=== PATIENT | male | born 1980 ===

== ENCOUNTER 2018-08-14 03:28 | Emergency (ER) | payer SELFPAY ==
[2018-08-14 03:37] VITALS: RESP 18
--- NOTE | 2018-08-14 04:07 | ED PDOC ---
HPI: Psych/Substance Abuse Chief Complaint (Provider): suicidal ideation History Per: Patient (37 y/o male h/o depression here with suicidal ideation. Patient denies any plan. States he has additional h/o schizophrenia and has been off Abilify. ) <Josee Delgado - Last Filed: 08/14/18 06:13> <Be Denise - Last Filed: 08/14/18 06:42> Time Seen by Provider: 08/14/18 03:45 Chief Complaint (Nursing): Alcohol Ingestion Past Medical History Reviewed: Historical Data, Nursing Documentation, Vital Signs Vital Signs: Last Vital Signs Temp 97.8 F 08/14/18 03:30 Pulse 82 08/14/18 03:30 Resp 18 08/14/18 03:30 BP 120/83 08/14/18 03:30 Pulse Ox 97 08/14/18 03:30 - Medical History PMH: Depression, Hypercholesterolemia - Family History Family History: States: No Known Family Hx <Josee Delgado - Last Filed: 08/14/18 06:13> Vital Signs: Last Vital Signs Temp 97.8 F 08/14/18 03:30 Pulse 82 08/14/18 03:30 Resp 18 08/14/18 03:30 BP 120/83 08/14/18 03:30 Pulse Ox 97 08/14/18 06:13 <Be Denise - Last Filed: 08/14/18 06:42> - Allergies Allergies/Adverse Reactions: Allergies Allergy/AdvReac Type Severity Reaction Status Date / Time No Known Allergies Allergy Verified 08/14/18 03:30 Review of Systems ROS Statement: Except As Marked, All Systems Reviewed And Found Negative <Josee Delgado - Last Filed: 08/14/18 06:13> Physical Exam - Reviewed Nursing Documentation Reviewed: Yes Vital Signs Reviewed: Yes - Physical Exam Appears: Positive for: Well, Non-toxic, No Acute Distress Head Exam: Positive for: ATRAUMATIC, NORMAL INSPECTION, NORMOCEPHALIC Skin: Positive for: Normal Color, Warm, DRY Eye Exam: Positive for: EOMI, Normal appearance, PERRL ENT: Positive for: Normal ENT Inspection Neck: Positive for: Normal, Painless ROM Cardiovascular/Chest: Positive for: Regular Rate, Rhythm Respiratory: Positive for: CNT, Normal Breath Sounds Gastrointestinal/Abdominal: Positive for: Normal Exam, Soft Back: Positive for: Normal Inspection Extremity: Positive for: Normal ROM Neurologic/Psych: Positive for: Alert, Oriented <Josee Delgado - Last Filed: 08/14/18 06:13> - Laboratory Results Result Diagrams: 08/14/18 04:10 08/14/18 04:10 - ECG O2 Sat by Pulse Oximetry: 97 <Josee Delgado - Last Filed: 08/14/18 06:13> - Laboratory Results Result Diagrams: 08/14/18 04:10 08/14/18 04:10 <Be Denise - Last Filed: 08/14/18 06:42> Medical Decision Making Medical Decision MakinAM Patient is awake and alert, steady gait Cleared by crisis with dx: alcohol induced depressive disorder by Dr. Molina STable for discharge <Be Denise - Last Filed: 08/14/18 06:42> Disposition - Patient ED Disposition Is Patient to be Admitted: Transfer of Care - Disposition Disposition: Transfer of Care Disposition Time: 06:13 Patient Signed Over To: Be Denise Handoff Comments: crisis eval <Josee Delgado - Last Filed: 08/14/18 06:13> - Patient ED Disposition Is Patient to be Admitted: No - Disposition Disposition: Routine/Home <Be Denise - Last Filed: 08/14/18 06:42> - Clinical Impression Clinical Impression: Alcohol ingestion - Disposition Referrals: Alcoholics Anonymous [Outside] Condition: FAIR Instructions: Depression, Suicide Prevention, Alcohol Abuse and Alcoholism (DC)
[2018-08-14 04:26] LABS: BASO % 0.7 % (0.0-2.0); EOS # 0.1 K/uL (0.0-0.7); HEMOGLOBIN 14.6 g/dL (12.0-18.0); LYMPH # 2.5 K/uL (1.0-4.3); LYMPH % 36.3 % (20.0-40.0); MEAN CELL VOLUME 89.2 fl (80.0-94.0); MEAN CORPUSCULAR HEMOGLOBIN 30.6 pg (27.0-31.0); MEAN CORPUSCULAR HGB CONC 34.3 g/dL (33.0-37.0); MEAN PLATELET VOLUME 9.3 fl (7.2-11.7); MONO # 0.6 K/uL (0.0-0.8); MONO % 8.7 % (0.0-10.0); NEUT # 3.6 K/uL (1.8-7.0); NEUT % 52.3 % (50.0-75.0); RBC 4.79 Mil/uL (4.40-5.90); RED CELL DISTRIBUTION WIDTH 13.4 % (11.5-14.5); WHITE BLOOD COUNT 6.9 K/uL (4.8-10.8)
[2018-08-14 04:47] LABS: ALB/GLOB RATIO 1.4 (1.0-2.1); ALBUMIN 4.5 g/dL (3.5-5.0); ALT/SGPT 29 U/L (21-72); AST/SGOT 28 U/L (17-59); BLOOD UREA NITROGEN 13 mg/dl (9-20); CALCIUM 8.9 mg/dL (8.4-10.2); GFR NON-AFRICAN AMERICAN > 60
[2018-08-14 07:09] LABS: SQUAMOUS EPITHIAL 1 /hpf (0-5); URINE BILIRUBIN NEGATIVE (NEGATIVE); URINE BLOOD NEGATIVE (NEGATIVE); URINE CLARITY CLEAR (Clear); URINE COLOR STRAW (YELLOW); URINE GLUCOSE (UA) 50 mg/dL (NEGATIVE); URINE LEUKOCYTE ESTERASE NEG Leu/uL (Negative); URINE PROTEIN NEGATIVE (NEGATIVE); URINE UROBILINOGEN 0.2-1.0 mg/dL (0.2-1.0)
[2018-08-14 07:10] VITALS: BP 123/78; PULSE 86; TEMP 97.7; O2SAT 96
[2018-08-14 07:15] LABS: BARBITURATES, UR NEGATIVE (NEGATIVE); BENZODIAZEPINES, UR NEGATIVE (NEGATIVE); OPIATES, UR NEGATIVE (NEGATIVE); PHENCYCLIDINE, UR NEGATIVE (NEGATIVE)
== END 2018-08-14 07:11 | disposition home or self-care (01) ==
LOC: H.ER 03:28
DX: F32.9 Major depressive disorder, single episode, unspecified (principal); Z86.59 Personal history of other mental and behavioral disorders; F10.10 Alcohol abuse, uncomplicated
CPT/HCPCS: 80053; 81003; 82948; 85025; 99282; G0480

== ENCOUNTER 2018-10-24 14:10 | Inpatient (IN) | payer MEDICAID ==
--- NOTE | 2018-10-24 15:39 | ED PDOC ---
HPI: Psych/Substance Abuse Time Seen by Provider: 10/24/18 15:08 Chief Complaint (Nursing): Psychiatric Evaluation Chief Complaint (Provider): psychiatric evaluation History Per: Patient History/Exam Limitations: no limitations Onset/Duration Of Symptoms: Days (several weeks) Current Symptoms Are (Timing): Still Present Associated Symptoms: Depression, Suicidal Thoughts. denies: Suicidal Plan Additional Complaint(s): Alessandro Kumar is a 38 year old male, with a past medical history of diabetes, hypercholesterolemia, depression, anxiety and schizophrenia, who was sent by PMD and brought to the emergency department by EMS for psychiatric evaluation after patient expressed suicidal ideations and feeling depressed. Patient also reports hearing voices telling him negative thoughts. Patient is noncompliant with his psychiatric medications stating he hasn't taken them in years. He admits to drinking alcohol today. He denies any plan, homicidal ideation, visual hallucinations or psychiatric complaints. PMD: Alice Linder at [facility]. Past Medical History Reviewed: Historical Data, Nursing Documentation, Vital Signs Vital Signs: Last Vital Signs Temp 99.2 F 10/24/18 14:41 Pulse 121 H 10/24/18 14:41 Resp 18 10/24/18 14:41 BP 125/81 10/24/18 14:41 Pulse Ox 99 10/24/18 14:41 - Medical History PMH: Anxiety, Depression, Diabetes (on Metformin), Hypercholesterolemia, Schizophrenia - Surgical History Surgical History: No Surg Hx - Family History Family History: States: Unknown Family Hx - Social History Current smoker - smoking cessation education provided: Yes (x3 cigarettes/day) Alcohol: > 2 Drinks/Day Drugs: Denies - Home Medications Home Medications: Ambulatory Orders Medication Instructions Recorded RX: Unobtainable 10/24/18 - Allergies Allergies/Adverse Reactions: Allergies Allergy/AdvReac Type Severity Reaction Status Date / Time No Known Allergies Allergy Verified 10/24/18 14:41 Review of Systems ROS Statement: Except As Marked, All Systems Reviewed And Found Negative Psych: Positive for: Depression, Suicidal ideation, Other ((+)auditory hallucinations. No suicidal plan, homicidal ideation or visual hallucinations.) Physical Exam - Reviewed Nursing Documentation Reviewed: Yes Vital Signs Reviewed: Yes - Physical Exam Comments: GENERAL APPEARANCE: Patient is awake, alert, oriented x 3, in no acute distress. SKIN: Warm, dry; (-) cyanosis ENMT: Mucous membranes moist. Airway patent: (-) stridor. NECK: Supple, FROM HEART AND CARDIOVASCULAR: (-) irregularity CHEST AND RESPIRATORY: (-) rales, (-) rhonchi, (-) wheezes; breath sounds equal. Respirations even and nonlabored. ABDOMEN: Soft, (-) distention, (-) tenderness, (-) guarding. NEURO AND PSYCH: Mental status as above. Affect: flat. (-) facial asymmetry. Gait: steady. Speech: clear. (-) facial asymmetry - Laboratory Results Result Diagrams: 10/24/18 18:32 10/24/18 19:15 - ECG O2 Sat by Pulse Oximetry: 99 (RA) Pulse Ox Interpretation: Normal Medical Decision Making Medical Decision Making: Time: 15:05 Initial Impression: psychiatric evaluation Initial Plan: --Alcohol serum --Drug screen, urine --Crisis evaluation --1:1 Observation --Reevaluation 1700 Utox: negative Serum alcohol: 183 Patient sleeping comfortably on re-evaluation. No distress noted. 1720 Crisis at bedside. 1800 Per crisis evaluation, patient to be admitted for Depression with Psychosis and Alcohol Abuse per Dr Molina. CBC, CMP, U/A, CXR, EKG ordered for medical clearance. 1900 EKG: ST @ 110bpm (-) ST elevation, QTc 457 1945 CXR reviewed, radiology report follows Date of service: 10/24/2018 HISTORY: psych admit COMPARISON: No prior. FINDINGS: LUNGS: No active pulmonary disease. PLEURA: No significant pleural effusion identified, no pneumothorax apparent. CARDIOVASCULAR: No atherosclerotic calcification present Normal. OSSEOUS STRUCTURES: No significant abnormalities. VISUALIZED UPPER ABDOMEN: Normal. OTHER FINDINGS: None. IMPRESSION: No active disease. 2019 Labs reviewed, patient is medically stable for psychiatric admission. Arrangements made for admission. ----- Scribe Attestation: Documented by Tavares Gonzales, acting as a scribe for Sydnee Lay PA-C. Provider Scribe Attestation: All medical record entries made by the Scribe were at my direction and person ally dictated by me. I have reviewed the chart and agree that the record accurately reflects my personal performance of the history, physical exam, medical decision making, and the department course for this patient. I have also personally directed, reviewed, and agree with the discharge instructions and disposition. Disposition - Clinical Impression Clinical Impression: Depression, Alcohol abuse - Patient ED Disposition Is Patient to be Admitted: Yes Counseled Patient/Family Regarding: Studies Performed, Diagnosis - Disposition Disposition Time: 18:00 Condition: FAIR - Pt Status Changed To: Hospital Disposition Of: Inpatient (psych) - Admit Certification Admit to Inpatient:: After my assessment, the patient will require hospitalization for at least two midnights. This is because of the severity of symptoms shown, intensity of services needed, and/or the medical risk in this patient being treated as an outpatient. - POA Present On Arrival: Poor Glycemic Control Results - Diagnostic Imaging Results Radiology Results Chest X-Ray 10/24/18 18:01 IMPRESSION: No active disease. - Lab Results Lab Results: 10/24/18 10/24/18 10/24/18 18:32 16:15 16:15 WBC 5.2 RBC 4.73 Hgb 14.6 Hct 43.2 MCV 91.2 D MCH 30.8 MCHC 33.8 RDW 14.3 Plt Count 210 MPV 9.5 Neut % (Auto) 57.9 Lymph % (Auto) 33.1 [place] % (Auto) 5.4 Eos % (Auto) 3.0 Baso % (Auto) 0.6 Neut # (Auto) 3.0 Lymph # (Auto) 1.7 [place] # (Auto) 0.3 Eos # (Auto) 0.2 Baso # (Auto) 0.0 Urine Opiates Screen Negative Urine Methadone Screen Negative Ur Barbiturates Screen Negative Ur Phencyclidine Scrn Negative Ur Amphetamines Screen Negative U Benzodiazepines Scrn Negative U Oth Cocaine Metabols Negative U Cannabinoids Screen Negative Alcohol, Quantitative 183 H
[2018-10-24 16:55] LABS: BENZODIAZEPINES, UR NEGATIVE (NEGATIVE)
[2018-10-24 17:00] LABS: BARBITURATES, UR NEGATIVE (NEGATIVE); OPIATES, UR NEGATIVE (NEGATIVE); PHENCYCLIDINE, UR NEGATIVE (NEGATIVE)
[2018-10-24 18:38] LABS: BASO % 0.6 % (0.0-2.0); EOS # 0.2 K/uL (0.0-0.7); HEMOGLOBIN 14.6 g/dL (12.0-18.0); LYMPH # 1.7 K/uL (1.0-4.3); LYMPH % 33.1 % (20.0-40.0); MEAN CELL VOLUME 91.2 fl (80.0-94.0); MEAN CORPUSCULAR HEMOGLOBIN 30.8 pg (27.0-31.0); MEAN CORPUSCULAR HGB CONC 33.8 g/dL (33.0-37.0); MEAN PLATELET VOLUME 9.5 fl (7.2-11.7); MONO # 0.3 K/uL (0.0-0.8); MONO % 5.4 % (0.0-10.0); NEUT % 57.9 % (50.0-75.0); NRBC % 0.1 % (0.0-0.0); RBC 4.73 Mil/uL (4.40-5.90); RED CELL DISTRIBUTION WIDTH 14.3 % (11.5-14.5); WHITE BLOOD COUNT 5.2 K/uL (4.8-10.8)
--- NOTE | 2018-10-24 18:51 | RAD ---
Date of service: 10/24/2018 HISTORY: psych admit COMPARISON: No prior. FINDINGS: LUNGS: No active pulmonary disease. PLEURA: No significant pleural effusion identified, no pneumothorax apparent. CARDIOVASCULAR: No atherosclerotic calcification present Normal. OSSEOUS STRUCTURES: No significant abnormalities. VISUALIZED UPPER ABDOMEN: Normal. OTHER FINDINGS: None. IMPRESSION: No active disease.
[2018-10-24 19:19] LABS: SQUAMOUS EPITHIAL < 1 /hpf (0-5); URINE BILIRUBIN NEGATIVE (NEGATIVE); URINE BLOOD NEGATIVE (NEGATIVE); URINE CLARITY CLEAR (Clear); URINE COLOR STRAW (YELLOW); URINE GLUCOSE (UA) >=500 mg/dL (NEGATIVE); URINE LEUKOCYTE ESTERASE NEG Leu/uL (Negative); URINE PROTEIN NEGATIVE (NEGATIVE); URINE UROBILINOGEN 0.2-1.0 mg/dL (0.2-1.0)
[2018-10-24 20:07] LABS: ALB/GLOB RATIO 1.4 (1.0-2.1); ALBUMIN 4.4 g/dL (3.5-5.0); ALT/SGPT 21 U/L (21-72); AST/SGOT 37 U/L (17-59); BLOOD UREA NITROGEN 10 mg/dl (9-20); CALCIUM 9.1 mg/dL (8.4-10.2); GFR NON-AFRICAN AMERICAN > 60
[2018-10-24] MEDS ORDERED: Magnesium Hydroxide Susp 30 ml UD PO PRN (22:24)
[2018-10-24] MEDS ORDERED: DiphenhydrAMINE 50 mg/ml Inj IM PRN (22:24)
[2018-10-24] MEDS ORDERED: Alum-Mag Hydrox-Simethicone Susp (30 mL) PO PRN (22:24)
--- NOTE | 2018-10-24 22:37 | PCM.BM ---
<Yuni Hagan P - Last Filed: 10/24/18 22:36> Treatment Plan Problems - Problems identified on initial assessmt Auditory Hallucinations Date Initiated: 10/24/18 Time Initiated: 22:36 Assessment reference: NA Status: Active Impaired Communication Date Initiated: 10/24/18 Time Initiated: 22:36 Assessment reference: NA Status: Active Altered Sleep Patterns Date Initiated: 10/24/18 (n) Assessment reference: NA Status: Active Treatment assets and liabiliti Patient Assests: cooperative, ADL independent, negotiates basic needs, cognitively intact, good interpersonal skills Patient Liabilities: financial problems, poor support system, substance abuse, medical problems, language/speech - Milieu Protocol Maintain good personal hygiene: daily Encourage regular showers, daily Remind patient to perform daily oral care, daily Assist patient to perform ADL's Conduct patient checks and document Observation sheet: Q15 minutes Maintain personal safety: every shift Educate patient to report safety concerns to staff, every shift Monitor environment for contraband/sharps Medication safety: Monitor for expected outcome, potential side effects: every shift, Assess barriers to learning: every shift, Assess readiness for medication education: every shift <Jimi Brasher J - Last Filed: 10/28/18 11:13> Treatment Plan Problems - Problems identified on initial assessmt Auditory Hallucinations Date Initiated: 10/24/18 Time Initiated: 22:36 Assessment reference: NA Status: Active Impaired Communication Date Initiated: 10/24/18 Time Initiated: 22:36 Assessment reference: NA Status: Active Altered Sleep Patterns Date Initiated: 10/24/18 (n) Assessment reference: NA Status: Active Knowledge deficit Alcohol Date Initiated: 10/27/18 Time Initiated: 14:36 Assessment reference: NA Status: Active Denial Date Initiated: 10/27/18 Time Initiated: 14:37 Assessment reference: NA Status: Active Family Contact Family involvement: Famliy/SO not involved Family contact: Patient declines to allow family contact at present Family contact name: Pt refused. - Goals for Treatment Patient goals for treatment: Pt offered no goals for treatment at this time, and appears to lack insight into his mental illness and substance abuse. Discharge/Continuing Care - Education Needs Education Needs: Patient Medication, Patient Diagnosis/Disease Process, Patient Coping Skills, Patient Aftercare Safety Plan - Discharge Discharge Criteria: Tolerates medication w/o severe side effects, Free of Suicidal thoughts, Free of agitation, Normal sleep pattern, Reduction of target symptoms Discharge to:: Home, With Family - Treatment Team Participation Patient/Family/SO Statement: 10/28/18 11:15 Pt was seen in treatment team on 10/27/18> Pt reported that he and his depression are doing "good." Dr. Molina explained that she will raise pt's Zoloft from 25mg to 50mg. Pt expressed trouble sleeping and denied auditory hallucinations at this time. Pt asked this caption writer to call his job and informed them of his hispitalization. Pt denied SI/HI. Discussed with Family/SO: Yes Was Patient/Family/SO present at Treatment Team Meeting: No <Monse Molina - Last Filed: 10/30/18 10:09> - Diagnosis (1) Alcohol abuse Status: Acute Interventions: 10/30/18 10:08 motivational, therapy (2) Depression Status: Acute Interventions: 10/30/18 10:09 pharmacotherapy, psychotherapy
[2018-10-25 00:16] VITALS: O2SAT 99
--- NOTE | 2018-10-25 09:03 | CARD ---
APPROVED REPORT Date of service: 10/24/2018 EKG Measurement Heart [id number] <Conclusion> Sinus tachycardia Otherwise normal ECG
--- NOTE | 2018-10-25 11:13 | CP.PCM.CON ---
<Yessi Juárez - Last Filed: 10/25/18 11:46> History of Present Illness - History of Present Illness History of Present Illness: 38 yo ,m, PMHx/o Anxiety, Depression, schizophrenia, DM, HLD who was sent by PMD by EMS due to suicidal ideation and feeling depressed. Pt reports he has not been taking his medications for diabetes and schizophrenia for the last 2 months. Reports auditory hallucination, women voices ordering to end with his life, but has not a plan. PT reports he has been drinking for the last 2 weeks more than usual. Denies chest pain, SOB, N,v,d,abd pain, headache, dizziness, tremor. PMD: Alice Linder at [facility]. Allergies: NKDA Meds: Metformin 1000 mg BID PSHx: ETOH social, but 1/2 bottle vodka for the last 2 weeks. REct drugs no, smoker 3 cig/daily Review of Systems - Review of Systems All systems: reviewed and no additional remarkable complaints except - Psychiatric Psychiatric: Hallucinations, Suicidal Ideation Past Patient History - Past Social History Alcohol: > 2 Drinks/Day Drugs: Denies - CARDIAC Hx Hypercholesterolemia: Yes - PULMONARY Hx Tuberculosis: No - NEUROLOGICAL Hx Seizures: No - HEENT Hx HEENT Problems: No - RENAL Hx Chronic Kidney Disease: No - ENDOCRINE/METABOLIC Hx Endocrine Disorders: Yes Hx Diabetes Mellitus Type 2: Yes - HEMATOLOGICAL/ONCOLOGICAL Hx Human Immunodeficiency Virus (HIV): No - INTEGUMENTARY Hx Dermatological Problems: No - MUSCULOSKELETAL/RHEUMATOLOGICAL Hx Musculoskeletal Disorders: No - GASTROINTESTINAL Hx Gastrointestinal Disorders: No - GENITOURINARY/GYNECOLOGICAL Hx Sexually Transmitted Disorders: No - PSYCHIATRIC Hx Anxiety: Yes Hx Depression: Yes Hx Schizophrenia: Yes - SURGICAL HISTORY Hx Surgeries: No - ANESTHESIA Hx Anesthesia: No Meds Allergies/Adverse Reactions: Allergies Allergy/AdvReac Type Severity Reaction Status Date / Time No Known Allergies Allergy Verified 10/24/18 14:41 - Medications Medications: Current Medications Acetaminophen (Tylenol 325mg Tab) 650 mg PO Q4 PRN PRN Reason: pain level 4-7 Al Hydrox/Mg Hydrox/Simethicone (Maalox Plus 30 Ml) 30 ml PO Q4 PRN PRN Reason: Dyspepsia Diphenhydramine HCl (Benadryl) 50 mg IM Q6 PRN PRN Reason: Extrapyramidal S/S Unable PO Diphenhydramine HCl (Benadryl) 50 mg PO Q6 PRN PRN Reason: Extrapyramidal Symptoms Diphenhydramine HCl (Benadryl) 50 mg PO HS PRN PRN Reason: Sleep Haloperidol (Haldol) 5 mg PO Q4 PRN PRN Reason: Agitation Haloperidol Lactate (Haldol) 5 mg IM Q4 PRN PRN Reason: Agitation, Unable to Take PO Lorazepam (Ativan) 2 mg IM Q8H PRN PRN Reason: Anxiety/Agitation,Unable PO Lorazepam (Ativan) 1 mg PO Q8 PRN PRN Reason: Anxiety/Agitation Magnesium Hydroxide (Milk Of Magnesia) 30 ml PO HS PRN PRN Reason: Constipation Metformin HCl (Glucophage) 1,000 mg PO BID AS[facility] Last Admin: 10/25/18 09:54 Dose: 1,000 mg Physical Exam - Constitutional Appears: Non-toxic - Eye Exam Eye Exam: Normal appearance - Respiratory Exam Respiratory Exam: Clear to Auscultation Bilateral. absent: Rales - Cardiovascular Exam Cardiovascular Exam: REGULAR RHYTHM, +S1, +S2 - GI/Abdominal Exam GI & Abdominal Exam: Normal Bowel Sounds, Soft - Psychiatric Exam Psychiatric exam: Flat Affect - Skin Skin Exam: Intact Results - Vital Signs Recent Vital Signs: Last Vital Signs Temp 97.9 F 10/25/18 09:20 Pulse 84 10/25/18 09:20 Resp 17 10/25/18 09:20 BP 140/86 10/25/18 09:20 Pulse Ox 99 10/25/18 00:18 - Labs Result Diagrams: 10/24/18 18:32 10/24/18 19:15 Labs: Laboratory Results - last 24 hr 10/24/18 10/24/18 10/24/18 16:15 16:15 18:32 WBC 5.2 RBC 4.73 Hgb 14.6 Hct 43.2 MCV 91.2 D MCH 30.8 MCHC 33.8 RDW 14.3 Plt Count 210 MPV 9.5 Neut % (Auto) 57.9 Lymph % (Auto) 33.1 [place] % (Auto) 5.4 Eos % (Auto) 3.0 Baso % (Auto) 0.6 Neut # (Auto) 3.0 Lymph # (Auto) 1.7 Stark # (Auto) 0.3 Eos # (Auto) 0.2 Baso # (Auto) 0.0 Sodium Potassium Chloride Carbon Dioxide Anion Gap BUN Creatinine Est GFR ( Amer) Est GFR (Non-Af Amer) POC Glucose (mg/dL) Random Glucose Calcium Total Bilirubin AST ALT Alkaline Phosphatase Total Protein Albumin Globulin Albumin/Globulin Ratio Triglycerides Cholesterol LDL Cholesterol Direct HDL Cholesterol Thyroxine (T4) TSH 3rd Generation Urine Color Urine Clarity Urine pH Ur Specific [place] Urine Protein Urine Glucose (UA) Urine Ketones Urine Blood Urine Nitrate Urine Bilirubin Urine Urobilinogen Ur Leukocyte Esterase Urine Microscopic WBC Ur Squamous Epith Cells Urine Opiates Screen Negative Urine Methadone Screen Negative Ur Barbiturates Screen Negative Ur Phencyclidine Scrn Negative Ur Amphetamines Screen Negative U Benzodiazepines Scrn Negative U Oth Cocaine Metabols Negative U Cannabinoids Screen Negative Alcohol, Quantitative 183 H 10/24/18 10/24/18 10/24/18 19:08 19:15 21:31 WBC RBC Hgb Hct MCV MCH MCHC RDW Plt Count MPV Neut % (Auto) Lymph % (Auto) [place] % (Auto) Eos % (Auto) Baso % (Auto) Neut # (Auto) Lymph # (Auto) [place] # (Auto) Eos # (Auto) Baso # (Auto) Sodium 142 Potassium 3.7 Chloride 103 Carbon Dioxide 21 L Anion Gap 22 H BUN 10 Creatinine 0.9 Est GFR ( Amer) > 60 Est GFR (Non-Af Amer) > 60 POC Glucose (mg/dL) 213 H Random Glucose 252 H Calcium 9.1 Total Bilirubin 0.2 AST 37 ALT 21 D Alkaline Phosphatase 85 Total Protein 7.5 Albumin 4.4 Globulin 3.1 Albumin/Globulin Ratio 1.4 Triglycerides Cholesterol LDL Cholesterol Direct HDL Cholesterol Thyroxine (T4) TSH 3rd Generation Urine Color Straw Urine Clarity Clear Urine pH 6.0 Ur Specific [place] 1.016 Urine Protein Negative Urine Glucose (UA) >=500 Urine Ketones Trace Urine Blood Negative Urine Nitrate Negative Urine Bilirubin Negative Urine Urobilinogen 0.2-1.0 Ur Leukocyte Esterase Neg Urine Microscopic WBC < 1 Ur Squamous Epith Cells < 1 Urine Opiates Screen Urine Methadone Screen Ur Barbiturates Screen Ur Phencyclidine Scrn Ur Amphetamines Screen U Benzodiazepines Scrn U Oth Cocaine Metabols U Cannabinoids Screen Alcohol, Quantitative 10/25/18 10/25/18 06:42 07:54 WBC RBC Hgb Hct MCV MCH MCHC RDW Plt Count MPV Neut % (Auto) Lymph % (Auto) [place] % (Auto) Eos % (Auto) Baso % (Auto) Neut # (Auto) Lymph # (Auto) Stark # (Auto) Eos # (Auto) Baso # (Auto) Sodium Potassium Chloride Carbon Dioxide Anion Gap BUN Creatinine Est GFR ( Amer) Est GFR (Non-Af Amer) POC Glucose (mg/dL) 147 H Random Glucose Calcium Total Bilirubin AST ALT Alkaline Phosphatase Total Protein Albumin Globulin Albumin/Globulin Ratio Triglycerides 230 H Cholesterol 179 LDL Cholesterol Direct 97 HDL Cholesterol 42 Thyroxine (T4) 3.66 L TSH 3rd Generation 2.03 Urine Color Urine Clarity Urine pH Ur Specific [place] Urine Protein Urine Glucose (UA) Urine Ketones Urine Blood Urine Nitrate Urine Bilirubin Urine Urobilinogen Ur Leukocyte Esterase Urine Microscopic WBC Ur Squamous Epith Cells Urine Opiates Screen Urine Methadone Screen Ur Barbiturates Screen Ur Phencyclidine Scrn Ur Amphetamines Screen U Benzodiazepines Scrn U Oth Cocaine Metabols U Cannabinoids Screen Alcohol, Quantitative Assessment & Plan - Assessment and Plan (Free Text) Plan: Assessment/Plan 1) Major depression/schyzophrenia -c/w haldol and psyq meds 2)DM -c/w metformin 1000 mg BID -f/u [id number] 3) HLD -lipid profile abn -Lipitor 40 mg daily 4) ETOH abuse -CIWA score o -c/w ativan 2mg IM Q8h PRN 5) smoker -nicotin patch daily 5) DVT Prophylaxis -patient ambulating in psyq unit . <Waleska Tian - Last Filed: 10/26/18 09:09> Meds - Medications Medications: Current Medications Acetaminophen (Tylenol 325mg Tab) 650 mg PO Q4 PRN PRN Reason: pain level 4-7 Al Hydrox/Mg Hydrox/Simethicone (Maalox Plus 30 Ml) 30 ml PO Q4 PRN PRN Reason: Dyspepsia Atorvastatin Calcium (Lipitor) 40 mg PO DAILY [facility] Last Admin: 10/26/18 08:26 Dose: 40 mg Diphenhydramine HCl (Benadryl) 50 mg IM Q6 PRN PRN Reason: Extrapyramidal S/S Unable PO Diphenhydramine HCl (Benadryl) 50 mg PO Q6 PRN PRN Reason: Extrapyramidal Symptoms Diphenhydramine HCl (Benadryl) 50 mg PO HS PRN PRN Reason: Sleep Gabapentin (Neurontin) 100 mg PO TID [facility] Last Admin: 10/26/18 08:26 Dose: 100 mg Haloperidol (Haldol) 5 mg PO Q4 PRN PRN Reason: Agitation Haloperidol Lactate (Haldol) 5 mg IM Q4 PRN PRN Reason: Agitation, Unable to Take PO Lorazepam (Ativan) 2 mg IM Q8H PRN PRN Reason: Anxiety/Agitation,Unable PO Lorazepam (Ativan) 1 mg PO Q8 PRN PRN Reason: Anxiety/Agitation Magnesium Hydroxide (Milk Of Magnesia) 30 ml PO HS PRN PRN Reason: Constipation Metformin HCl (Glucophage) 1,000 mg PO BID [facility] Last Admin: 10/26/18 08:25 Dose: 1,000 mg Nicotine (Nicoderm Cq) 1 patch TD DAILY [facility] Last Admin: 10/26/18 08:26 Dose: 1 patch Risperidone (Risperdal M-Tab) 1 mg PO HS [facility] Last Admin: 10/25/18 21:09 Dose: 1 mg Sertraline HCl (Zoloft) 25 mg PO DAILY [facility] Last Admin: 10/26/18 08:25 Dose: 25 mg Trazodone HCl (Desyrel) 50 mg PO HS [facility] Last Admin: 10/25/18 21:10 Dose: 50 mg Results - Vital Signs Recent Vital Signs: Last Vital Signs Temp 97.9 F 10/25/18 10:00 Pulse 89 10/25/18 10:00 Resp 18 10/25/18 10:00 BP 140/86 10/25/18 10:00 Pulse Ox 99 10/25/18 00:18 - Labs Result Diagrams: 10/24/18 18:32 10/24/18 19:15 Labs: Laboratory Results - last 24 hr 10/25/18 10/25/18 10/25/18 07:54 07:54 11:43 POC Glucose (mg/dL) 196 H Hemoglobin A1c 8.1 H RPR Nonreactive 10/25/18 10/25/18 10/26/18 17:00 20:14 06:21 POC Glucose (mg/dL) 230 H 189 H 213 H Hemoglobin A1c RPR Attending/Attestation - Attestation I have personally seen and examined this patient.: Yes I have fully participated in the care of the patient.: Yes I have reviewed all pertinent clinical information: Yes Notes (Text): 10/26/18 09:09 Agree with findings and plan as above.
--- NOTE | 2018-10-25 15:12 | PCM.PSYCH ---
Initial Psychiatric Evaluation - Initial Psychiatric Evaluation Legal Status: Capacity Chief Complaint (in patient's own words): I am depressed I could not function History of Present Illness and Precipitating Events: pt is 38ys old male presented to ER with depression and suicidal ideation pt is currently not in formal psychiatric treatment but reported he suffered from depression with auditory hallucinations since age 10 as he had difficult childhood with financial difficulties and having to work at an early age , pt reported his depression increased four years ago after a divorce , his marriage has lasted 12 years , since then pt has been self medicating with alcohol 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 passive suicidal ideation without active plan Current Medications: Active Medications Generic Name Dose Route Start Last Admin Trade Name Freq PRN Reason Stop Dose Admin Acetaminophen 650 mg 10/24/18 22:24 Tylenol 325mg Tab PO Q4 PRN pain level 4-7 Al Hydrox/Mg Hydrox/Simethicone 30 ml 10/24/18 22:24 Maalox Plus 30 Ml PO Q4 PRN Dyspepsia Atorvastatin Calcium 40 mg 10/26/18 09:00 Lipitor PO DAILY ASIA Diphenhydramine HCl 50 mg 10/24/18 22:24 Benadryl IM Q6 PRN Extrapyramidal S/S Unable PO Diphenhydramine HCl 50 mg 10/24/18 22:24 Benadryl PO Q6 PRN Extrapyramidal Symptoms Diphenhydramine HCl 50 mg 10/24/18 22:27 Benadryl PO HS PRN Sleep Gabapentin 100 mg 10/25/18 17:00 Neurontin PO TID ASIA Haloperidol 5 mg 10/24/18 22:24 Haldol PO Q4 PRN Agitation Haloperidol Lactate 5 mg 10/24/18 22:24 Haldol IM Q4 PRN Agitation, Unable to Take PO Lorazepam 2 mg 10/24/18 22:24 Ativan IM Q8H PRN Anxiety/Agitation,Unable PO Lorazepam 1 mg 10/24/18 22:24 Ativan PO Q8 PRN Anxiety/Agitation Magnesium Hydroxide 30 ml 10/24/18 22:24 Milk Of Magnesia PO HS PRN Constipation Metformin HCl 1,000 mg 10/25/18 09:00 10/25/18 09:54 Glucophage PO 1,000 mg BID ASIA Administration Nicotine 1 patch 10/26/18 09:00 Nicoderm Cq TD DAILY ASIA Sertraline HCl 25 mg 10/25/18 13:30 Zoloft PO DAILY ASIA Trazodone HCl 50 mg 10/25/18 22:00 Desyrel PO HS ASIA Past Psychiatric History - Past Psychiatric History Explanation of prior treatment: about three inpatient hospitalizations due to suicidal ideation History of ETOH/Drug Use: alcohol Pertinent Medical Hx (Current Medical&Sleep Prob, Allergies): Allergies Allergy/AdvReac Type Severity Reaction Status Date / Time No Known Allergies Allergy Verified 10/24/18 14:41 MetFORMIN [glucoPHAGE] 1,000 mg PO BID 10/25/18 Mental Status Examination - Personal Presentation Personal Presentation: Looks stated age - Affect Affect: Constricted, Depressed - Motor Activity Motor Activity: Psychomotor Retardation - Reliability in Providing Information Reliability in Providing Information: Fair - Speech Speech: Relevant - Mood Mood: Depressed, Anxious - Formal Thought Process Formal Thought Process: Hallucinations, Circumstantial - Hallucinations/Delusions Hallucinations: Auditory - Obsessions/Compulsions Obsessions: No Compulsions: No - Cognitive Functions Orientation: Person, Place Sensorium: Alert Abstract Thinking: [place] Estimate of Intelligence: Average Judgement: Imparied, as evidence by: Poor judgement - Risk Risk: Suicidal, Withdrawal, Diminished functioning - Strength & Assets Inventory Strength & Assets Inventory: Life experience - Limitations Additional comments: poor social support DSM 5 DX - DSM 5 DSM 5 Diagnosis: poor social support - Recommended/Plan of Treatment Treatment Recommendations and Plan of Treatment: pt will be started on [id number] ativan prn and monitor for symptoms and signs of alcohol withdrawal neurontin 100mg tid risperidone 1mg qhs motivational , group and supportive therapy
[2018-10-25] MEDS: Risperidone M tab 1 MG PO SCH (21:09)
--- NOTE | 2018-10-26 12:35 | PCM.PYCHPN ---
Psychiatric Progress Note - Psychiatric Progress Note Patient seen today, length of contact: pt evaluated discussed with team chart reviewed Patient Chief Complaint: I am depressed I could not function Problems Identified/Issues Discussed: pt evaluated , presenting with depressed mood and affect, reported feeling worried about loosing his job, continues to have low energy with poor motivation, discussed with pt increasing the dose of zoloft, motivational therapy provided in reference to effect of alcohol on current mental status , pt reported partial clearing of the auditory hallucinations, encouraged to attaend groups pt denied command hallucinations, denied active thoughts of self harm on the unit Medical Problems: about three inpatient hospitalizations due to suicidal ideation DSM 5 Symptoms Update: major depression severe with psychotic features alcohol dependence Medication Change: Yes (increase zoloft) Medical Record Reviewed: Yes Mental Status Examination - Cognitive Function Orientation: Person, Place, Situation Memory: Intact Attention: WNL Concentration: WNL Association: WNL Decription of patient's judgement and insights: partial insight fair judgment - Mood Mood: Depressed, Anxious - Affect Affect: Constricted, Depressed - Speech Speech: Soft - Formal Thought Process Formal Thought Process: Hallucinations, Circumstantial - Suicidal Ideation Suicidal Ideation: No - Homicidal Ideation Homicidal Ideation: No Goal/Treatment Plan - Goal/Treatment Plan Need for Continued Stay: Severe depression anxiety, Discharge may exacerbated symptoms Progress Toward Problem(s) and Goals/Treatment Plan: increase zoloft 50 mg daily ativan prn and monitor for symptoms and signs of alcohol withdrawal neurontin 100mg tid risperidone 1mg qhs motivational , group and supportive therapy
[2018-10-26] MEDS: Risperidone M tab 1 MG PO SCH (21:08)
--- NOTE | 2018-10-27 14:37 | PCM.BM ---
Treatment Plan Problems - Problems identified on initial assessmt Auditory Hallucinations Date Initiated: 10/24/18 Time Initiated: 22:36 Assessment reference: NA Status: Active Impaired Communication Date Initiated: 10/24/18 Time Initiated: 22:36 Assessment reference: NA Status: Active Altered Sleep Patterns Date Initiated: 10/24/18 (n) Assessment reference: NA Status: Active Knowledge deficit Alcohol Date Initiated: 10/27/18 Time Initiated: 14:36 Assessment reference: NA Status: Active Denial Date Initiated: 10/27/18 Time Initiated: 14:37 Assessment reference: NA Status: Active Treatment assets and liabiliti Patient Assests: cooperative, ADL independent, negotiates basic needs, cognitively intact, good interpersonal skills Patient Liabilities: financial problems, poor support system, substance abuse, medical problems, language/speech - Milieu Protocol Maintain good personal hygiene: daily Encourage regular showers, daily Remind patient to perform daily oral care, daily Assist patient to perform ADL's Conduct patient checks and document Observation sheet: Q15 minutes Maintain personal safety: every shift Educate patient to report safety concerns to staff, every shift Monitor environment for contraband/sharps Medication safety: Monitor for expected outcome, potential side effects: every shift, Assess barriers to learning: every shift, Assess readiness for medication education: every shift Milieu Narrative: increase zoloft 50 mg daily ativan prn and monitor for symptoms and signs of alcohol withdrawal neurontin 100mg tid risperidone 1mg qhs motivational , group and supportive therapy Discharge/Continuing Care - Treatment Team Participation Patient/Family/SO Statement: increase zoloft 50 mg daily ativan prn and monitor for symptoms and signs of alcohol withdrawal neurontin 100mg tid risperidone 1mg qhs motivational , group and supportive therapy
--- NOTE | 2018-10-27 16:10 | PCM.PYCHPN ---
Psychiatric Progress Note - Psychiatric Progress Note Patient seen today, length of contact: pt evaluated discussed with team chart reviewed Patient Chief Complaint: I feel a little better Problems Identified/Issues Discussed: pt evaluated with treatment team, reported feeling less depressed with increase in zoloft, no reported side effects, pt anxious , reported feeling worried about loosing his job, motivational therapy provided in reference to effect of alcohol on current mental status ,discussed with pt starting [facility] on discharge pt reported partial clearing of the auditory hallucinations, encouraged to attend groups pt denied command hallucinations, denied active thoughts of self harm on the unit Medical Problems: about three inpatient hospitalizations due to suicidal ideation DSM 5 Symptoms Update: major depression alcohol abuse Medication Change: No Medical Record Reviewed: Yes Mental Status Examination - Cognitive Function Orientation: Person, Place, Situation Memory: Intact Attention: WNL Concentration: WNL Association: WNL Decription of patient's judgement and insights: partial insight fair judgment - Mood Mood: Depressed, Anxious - Affect Affect: Constricted, Depressed - Speech Speech: Soft - Formal Thought Process Formal Thought Process: Hallucinations, Circumstantial - Suicidal Ideation Suicidal Ideation: No - Homicidal Ideation Homicidal Ideation: No Goal/Treatment Plan - Goal/Treatment Plan Need for Continued Stay: Severe depression anxiety, Discharge may exacerbated symptoms Progress Toward Problem(s) and Goals/Treatment Plan: zoloft 50 mg daily discontinue ativan neurontin 100mg tid risperidone 1mg qhs motivational , group and supportive therapy
[2018-10-27] MEDS: Risperidone M tab 1 MG PO SCH (21:03)
--- NOTE | 2018-10-28 08:27 | PCM.PYCHPN ---
Psychiatric Progress Note - Psychiatric Progress Note Patient seen today, length of contact: pt evaluated discussed with team chart reviewed Patient Chief Complaint: pt has been less depressed and less anxious on meds and denies any hallucinatiins .pt is less irritible and tolerating risperdal and zoloft.pt has better insight regarding his depression and need to continue treatment and stay abstinent of Alcohol.no withdrawls noted Medication Change: No Medical Record Reviewed: Yes Mental Status Examination - Cognitive Function Orientation: Person, Place, Situation Memory: Intact Attention: WNL Concentration: WNL Association: WNL - Mood Mood: Depressed, Anxious - Affect Affect: Constricted, Depressed - Speech Speech: Soft - Formal Thought Process Formal Thought Process: Hallucinations, Circumstantial - Suicidal Ideation Suicidal Ideation: No - Homicidal Ideation Homicidal Ideation: No Goal/Treatment Plan - Goal/Treatment Plan Need for Continued Stay: Severe depression anxiety, Discharge may exacerbated symptoms Progress Toward Problem(s) and Goals/Treatment Plan: Will continue to titrate meds as needed and engage pt in therapy. D/c plans as per dr stovall. pt will be referred to [facility] in outpt .
[2018-10-28] MEDS: Risperidone M tab 1 MG PO SCH (21:05)
--- NOTE | 2018-10-29 13:18 | PCM.PYCHPN ---
Psychiatric Progress Note - Psychiatric Progress Note Patient seen today, length of contact: pt evaluated discussed with team chart reviewed Patient Chief Complaint: pt c/o increased anxiety and afraid of voices coming back.pt has been less depressed and less anxious on meds and denies any hallucinatiins .pt is less irritible and tolerating risperdal and zoloft.pt has better insight regarding his depression and need to continue treatment and stay abstinent of Alcohol.no withdrawls noted Medication Change: No Medical Record Reviewed: Yes Mental Status Examination - Cognitive Function Orientation: Person, Place, Situation Memory: Intact Attention: WNL Concentration: WNL Association: WNL - Mood Mood: Depressed, Anxious - Affect Affect: Constricted, Depressed - Speech Speech: Soft - Formal Thought Process Formal Thought Process: Hallucinations, Circumstantial - Suicidal Ideation Suicidal Ideation: No - Homicidal Ideation Homicidal Ideation: No Goal/Treatment Plan - Goal/Treatment Plan Need for Continued Stay: Severe depression anxiety, Discharge may exacerbated symptoms Progress Toward Problem(s) and Goals/Treatment Plan: Will increase neurontin to 200 mg tid anc continue to titrate meds as needed and engage pt in therapy. D/c plans as per dr stovall. pt will be referred to [facility] in outpt .
--- NOTE | 2018-10-29 13:31 | PCM.PYCHPN ---
Psychiatric Progress Note - Psychiatric Progress Note Patient seen today, length of contact: pt evaluated discussed with team chart reviewed Patient Chief Complaint: ptc/o doing better on meds but is very anxious and afraid of voices coming back.pt has been less depressed and less anxious on meds and denies any hallucinatiins .pt is less irritible and tolerating risperdal and zoloft.pt has better insight regarding his depression and need to continue treatment and stay abstinent of Alcohol.no withdrawls noted Medication Change: No Medical Record Reviewed: Yes Mental Status Examination - Cognitive Function Orientation: Person, Place, Situation Memory: Intact Attention: WNL Concentration: WNL Association: WNL - Mood Mood: Depressed, Anxious - Affect Affect: Constricted, Depressed - Speech Speech: Soft - Formal Thought Process Formal Thought Process: Hallucinations, Circumstantial - Suicidal Ideation Suicidal Ideation: No - Homicidal Ideation Homicidal Ideation: No Goal/Treatment Plan - Goal/Treatment Plan Need for Continued Stay: Severe depression anxiety, Discharge may exacerbated symptoms Progress Toward Problem(s) and Goals/Treatment Plan: Will continue to titrate meds as needed and engage pt in therapy. D/c plans as per dr stovall. pt will be referred to [facility] in outpt .
[2018-10-29] MEDS: Risperidone M tab 1 MG PO SCH (21:04)
[2018-10-30 09:21] VITALS: BP 122/71; PULSE 75; RESP 16; TEMP 96.9
--- NOTE | 2018-10-30 11:57 | PCM.PYCHDC ---
Mental Status Examination - Mental Status Examination Orientation: Person, Place, Situation Memory: Intact Mood: Neutral Affect: Broad Speech: Appropriate Attention: WNL Concentration: WNL Association: WNL Fund of Knowledge: WNL Formal Thought Process: No Impairment Description of patient's judgement and insight: partial insight fair judgment Psychotic Thoughts and Behaviors: pt denied psychotic symptoms on discharge, non elicited Suicidal Ideation: No Current Homicidal Ideation?: No Discharge Summary - Discharge Note Reason for Hospitalization: pt is 38ys old male presented to ER with depression and suicidal ideation pt is currently not in formal psychiatric treatment but reported he suffered from depression with auditory hallucinations since age 10 as he had difficult childhood with financial difficulties and having to work at an early age , pt reported his depression increased four years ago after a divorce , his marriage has lasted 12 years , since then pt has been self medicating with alcohol 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 passive suicidal ideation without active plan Laboratory Data: Abnormal Lab Results 10/29/18 10/29/18 10/29/18 11:41 16:27 20:21 POC Glucose (mg/dL) 236 H 187 H 227 H 10/30/18 06:40 POC Glucose (mg/dL) 196 H Consultations:: List each consultation separately and include: 1. Reason for request. 2. Findings. 3. Follow-up Summary of Hospital Course include:: 1. Description of specific treatment plan utilized for patients during their course of treatmen. 2. Summarize the time- course for resolution of acute symptoms and/or regressed behaviors. 3. Describe issues identified and worked on during hospitalization. 4. Describe medication utilized. 5. Describe medical problems identified and treated. 6. Reassessment of suicide risk Summary of Hospital Course: pt on admission was started on ativan protocol and monitored for symptoms and signs of alcohol withdrawal pt was started on zoloft for depression, neurontin and risperidone motivational therapy was provided in reference to alcohol use pt was compliant with treatment , attended groups, no reported side effects of medications on discharge pt mental status was stable, denied any current suicidal or homicidal ideation denied perceptual disturbances follow up arranged by social service technician at [facility] - Diagnosis (1) Alcohol abuse Current Visit: Yes Status: Acute (2) Depression Current Visit: Yes Status: Acute - Final Diagnosis (DSM 5) Condition upon Discharge: FAIR DSM 5: major depression with psychotic features alcohol abuse Disposition: HOME/ ROUTINE Follow-up Treatment Plan: zoloft 50 mg daily discontinue ativan neurontin 100mg tid risperidone 1mg qhs motivational , group and supportive therapy Prescriptions/Medication Reconciliation: Atorvastatin [Lipitor] 40 mg PO DAILY 30 Days #30 tab Gabapentin [Neurontin] 200 mg PO TID 30 Days #180 cap Nicotine 14 mg/24 hr [Nicoderm CQ] 1 patch TD DAILY 30 Days #30 patch Risperidone [Risperdal M-TAB] 1 mg PO HS 30 Days #30 odt Sertraline [Zoloft] 50 mg PO DAILY 30 Days #30 tab traZODone [Desyrel] 50 mg PO HS 30 Days #30 tab - Antipsychotic Medications Pt discharged on 2 or more routine antipsychotic medications: No
== END 2018-10-30 14:35 | disposition home or self-care (01) | DRG 751 ==
LOC: H.ER 14:10 → H.ERHOLD 19:06 → H.PSYCH 22:16
PROVIDERS: ADMIT Psychiatry & Neurology Psychiatry; ATTEND Psychiatry & Neurology Psychiatry
PROC: HZ57ZZZ Individual Psychotherapy for Substance Abuse Treatment, Motivational Enhancement (ICD-10-PCS; principal; 2018-10-24)
PROC: GZHZZZZ Group Psychotherapy (ICD-10-PCS; 2018-10-24)
PROC: GZ56ZZZ Individual Psychotherapy, Supportive (ICD-10-PCS; 2018-10-24)
DX: F32.3 Major depressive disorder, single episode, severe with psychotic features (principal); E11.9 Type 2 diabetes mellitus without complications; R45.851 Suicidal ideations; Z79.84 Long term (current) use of oral hypoglycemic drugs; Z91.14 Patient's other noncompliance with medication regimen; E78.5 Hyperlipidemia, unspecified; F17.210 Nicotine dependence, cigarettes, uncomplicated; E78.00 Pure hypercholesterolemia, unspecified; F10.10 Alcohol abuse, uncomplicated; Y90.6 Blood alcohol level of 120-199 mg/100 ml

== ENCOUNTER 2018-12-02 23:04 | Emergency (ER) | payer OTHER ==
--- NOTE | 2018-12-02 23:58 | ED PDOC ---
HPI: Psych/Substance Abuse Time Seen by Provider: 12/02/18 23:10 Chief Complaint (Nursing): Psychiatric Evaluation Chief Complaint (Provider): auditory hallucinations and SI History Per: Patient History/Exam Limitations: no limitations Onset/Duration Of Symptoms: Days Current Symptoms Are (Timing): Still Present Associated Symptoms: Depression, Suicidal Thoughts, Other (auditory hallucinations) Additional Complaint(s): Alessandro Kumar is a 38 year old male, with a past medical history of diabetes, alcoholism, schizophrenia and bipolar disorder with a recent admission to the psychiatric unit, who presents to the emergency department complaining of hearing voices and suicidal ideation. Patient reports being discharged from the psychiatric unit but ran out of medications, states he doesn't have a scheduled appointment for follow up until next Tuesday. Patient hasn't been on his medications for a week and reports getting progressively more depressed with suicidal ideation and increasingly hearing voices. In order to relief symptoms, he has attempted to drink alcohol. He denies any drug use. No further medical complaints. PMD: [facility] Past Medical History Reviewed: Historical Data, Nursing Documentation, Vital Signs Vital Signs: Last Vital Signs Temp 98.3 F 12/02/18 23:06 Pulse 76 12/02/18 23:06 Resp 16 12/02/18 23:06 BP 127/77 12/02/18 23:06 Pulse Ox 97 12/02/18 23:06 - Medical History PMH: Anxiety, Bipolar Disorder, Depression, Diabetes (on Metformin), Hypercholesterolemia, Schizophrenia Denies: Hepatitis, HIV, HTN, Chronic Kidney Disease, Seizures, Sexually Transmitted Disease - Surgical History Surgical History: No Surg Hx - Family History Family History: States: Unknown Family Hx - Social History Current smoker - smoking cessation education provided: Yes Alcohol: Other (hx of alcoholism) Drugs: Denies - Home Medications Home Medications: Ambulatory Orders Medication Instructions Recorded MetFORMIN [glucoPHAGE] 1,000 mg PO BID 10/25/18 Gabapentin [Neurontin] 200 mg PO TID 30 Days #180 cap 10/30/18 Nicotine 14 mg/24 hr [Nicoderm CQ] 1 patch TD DAILY 30 Days #30 patch 10/30/18 Risperidone [Risperdal M-TAB] 1 mg PO HS 30 Days #30 odt 10/30/18 Sertraline [Zoloft] 50 mg PO DAILY 30 Days #30 tab 10/30/18 traZODone [Desyrel] 50 mg PO HS 30 Days #30 tab 10/30/18 ARIPiprazole [Abilify] 5 mg PO HS #30 tab 12/07/18 Atorvastatin [Lipitor] 40 mg PO DAILY 30 Days #30 tab 12/07/18 Gabapentin [Neurontin] 300 mg PO BID #60 cap 12/07/18 Sertraline [Zoloft] 50 mg PO DAILY #30 tab 12/07/18 metFORMIN [glucOPHAGE] 1,000 mg PO BID #60 tab 12/07/18 traZODone [Desyrel] 50 mg PO HS PRN #30 tab 12/07/18 - Allergies Allergies/Adverse Reactions: Allergies Allergy/AdvReac Type Severity Reaction Status Date / Time No Known Allergies Allergy Verified 12/03/18 11:21 Review of Systems ROS Statement: Except As Marked, All Systems Reviewed And Found Negative Psych: Positive for: Depression, Suicidal ideation, Other (auditory hallucinations) Physical Exam - Reviewed Nursing Documentation Reviewed: Yes Vital Signs Reviewed: Yes - Physical Exam Appears: Positive for: No Acute Distress (tired appearing) Head Exam: Positive for: ATRAUMATIC, NORMAL INSPECTION, NORMOCEPHALIC Skin: Positive for: Normal Color, Warm, Dry Eye Exam: Positive for: Normal appearance Neck: Positive for: Painless ROM, Supple Cardiovascular/Chest: Positive for: Regular Rate, Rhythm. Negative for: Murmur Respiratory: Positive for: Normal Breath Sounds. Negative for: Respiratory Distress Gastrointestinal/Abdominal: Negative for: Tenderness, Distended Back: Positive for: Normal Inspection Extremity: Positive for: Normal ROM. Negative for: Deformity Lymphatic: Negative for: Adenopathy Neurological/Psych: Positive for: Awake, Alert, Normal Tone, Oriented (x3), Mood/Affect (depressed), Other (normal thought process and concentration). Negative for: Motor/Sensory Deficits - Laboratory Results Result Diagrams: 12/02/18 23:59 12/02/18 23:59 - ECG O2 Sat by Pulse Oximetry: 97 (RA) Pulse Ox Interpretation: Normal Medical Decision Making Medical Decision Making: Time: 23:10 Initial Impression: Depression, suicidal ideation, psychosis and alcohol intoxi cation Initial Plan: --Acetaminophen --Alcohol serum --Comp Metabolic Panel --Drug screen, urine --Salicylate --Crisis evaluation --Urine dipstick --CBC w/ differential --1:1 Observation --Reevaluation Scribe Attestation: Documented by Tavares Gonzales, acting as a scribe for Leta Romano MD Provider Scribe Attestation: All medical record entries made by the Scribe were at my direction and personally dictated by me. I have reviewed the chart and agree that the record accurately reflects my personal performance of the history, physical exam, medical decision making, and the department course for this patient. I have also personally directed, reviewed, and agree with the discharge instructions and disposition. Disposition - Clinical Impression Clinical Impression: Schizoaffective disorder - Disposition Disposition: Transfer of Care Disposition Time: 00:00 Condition: STABLE Patient Signed Over To: Be Denise Handoff Comments: Pending crisis eval and final ER disposition
[2018-12-03 00:16] LABS: BASO # 0.1 K/uL (0.0-0.2); BASO % 0.9 % (0.0-2.0); EOS # 0.2 K/uL (0.0-0.7); EOS % 2.8 % (0.0-4.0); HEMOGLOBIN 13.6 g/dL (12.0-18.0); LYMPH # 2.6 K/uL (1.0-4.3); MEAN CORPUSCULAR HEMOGLOBIN 31.4 pg (27.0-31.0); MEAN CORPUSCULAR HGB CONC 34.6 g/dL (33.0-37.0); MEAN PLATELET VOLUME 8.9 fl (7.2-11.7); MONO # 0.7 K/uL (0.0-0.8); MONO % 9.7 % (0.0-10.0); NEUT # 3.6 K/uL (1.8-7.0); NEUT % 50.6 % (50.0-75.0); RBC 4.31 Mil/uL (4.40-5.90); WHITE BLOOD COUNT 7.2 K/uL (4.8-10.8)
[2018-12-03 00:33] LABS: ALB/GLOB RATIO 1.5 (1.0-2.1); ALBUMIN 4.2 g/dL (3.5-5.0); ALT/SGPT 32 U/L (21-72); AST/SGOT 32 U/L (17-59); BLOOD UREA NITROGEN 14 mg/dl (9-20); CALCIUM 9.3 mg/dL (8.4-10.2); GFR NON-AFRICAN AMERICAN > 60
[2018-12-03 00:34] LABS: ACETAMINOPHEN < 10.0 ug/ml (10.0-30.0); SALICYLATE < 1.0 mg/dl
[2018-12-03 00:44] LABS: BARBITURATES, UR NEGATIVE (NEGATIVE); BENZODIAZEPINES, UR NEGATIVE (NEGATIVE); OPIATES, UR NEGATIVE (NEGATIVE); PHENCYCLIDINE, UR NEGATIVE (NEGATIVE)
[2018-12-03 02:02] VITALS: BP 134/82; PULSE 71; RESP 15; TEMP 98.2
[2018-12-07 20:44] VITALS: O2SAT 97
== END 2018-12-03 01:45 | disposition home or self-care (01) ==
LOC: H.ER 23:04
DX: F25.9 Schizoaffective disorder, unspecified (principal); Z86.59 Personal history of other mental and behavioral disorders; E11.9 Type 2 diabetes mellitus without complications; F17.200 Nicotine dependence, unspecified, uncomplicated; Z79.84 Long term (current) use of oral hypoglycemic drugs

== ENCOUNTER 2019-02-02 23:37 | Emergency (ER) | payer MEDICAID ==
[2019-02-02 23:44] VITALS: BMI 29.2
[2019-02-02 23:51] VITALS: RESP 18
--- NOTE | 2019-02-03 00:30 | ED PDOC ---
HPI: Psych/Substance Abuse Time Seen by Provider: 02/02/19 23:43 Chief Complaint (Nursing): Psychiatric Evaluation Chief Complaint (Provider): Psychiatric Evaluation History Per: Patient, EMS History/Exam Limitations: no limitations Associated Symptoms: Suicidal Thoughts, Other (Auditory hallucinations) Additional Complaint(s): 38 years old male with history of schizoaffective disorder brought in by EMS for psychiatric evaluation. Patient complaining of suicidal ideation and auditory hallucinations. He does not verbalize any other complaints. Patient admits to using alcohol and cocaine tonight. PMD: None provided Past Medical History Reviewed: Historical Data, Nursing Documentation, Vital Signs Vital Signs: Last Vital Signs Temp 99.0 F 02/02/19 23:44 Pulse 114 H 02/02/19 23:44 Resp 18 02/02/19 23:44 BP 143/86 02/02/19 23:44 Pulse Ox 96 02/02/19 23:44 Primary Care Provider: Procedure,Nonphys - Medical History PMH: Anxiety, Bipolar Disorder, Depression, Diabetes, HTN, Hypercholesterolemia, Schizophrenia Denies: Hepatitis, HIV, Chronic Kidney Disease, Seizures, Sexually Transmitted Disease - Surgical History Surgical History: No Surg Hx - Family History Family History: States: Unknown Family Hx - Social History Alcohol: Social Drugs: Cocaine - Immunization History Hx Tetanus Toxoid Vaccination: No Hx Influenza Vaccination: No Hx Pneumococcal Vaccination: No - Home Medications Home Medications: Ambulatory Orders Medication Instructions Recorded Nicotine 14 mg/24 hr [Nicoderm CQ] 1 patch TD DAILY 30 Days #30 patch 10/30/18 Risperidone [Risperdal M-TAB] 1 mg PO HS 30 Days #30 odt 10/30/18 Sertraline [Zoloft] 50 mg PO DAILY 30 Days #30 tab 10/30/18 ARIPiprazole [Abilify] 5 mg PO HS #30 tab 12/07/18 Atorvastatin [Lipitor] 40 mg PO DAILY 30 Days #30 tab 12/07/18 Gabapentin [Neurontin] 300 mg PO BID #60 cap 12/07/18 metFORMIN [glucOPHAGE] 1,000 mg PO BID #60 tab 12/07/18 traZODone [Desyrel] 150 mg PO HS PRN 02/03/19 - Allergies Allergies/Adverse Reactions: Allergies Allergy/AdvReac Type Severity Reaction Status Date / Time No Known Allergies Allergy Verified 02/02/19 23:44 Review of Systems ROS Statement: Except As Marked, All Systems Reviewed And Found Negative Psych: Positive for: Suicidal ideation, Other (auditory hallucination) Physical Exam - Reviewed Nursing Documentation Reviewed: Yes Vital Signs Reviewed: Yes - Physical Exam Appears: Positive for: Well, No Acute Distress Head Exam: Positive for: ATRAUMATIC Skin: Positive for: Normal Color, Warm, Dry Eye Exam: Positive for: Normal appearance, EOMI, PERRL ENT: Positive for: Normal ENT Inspection Neck: Positive for: Normal, Painless ROM, Supple Cardiovascular/Chest: Positive for: Regular Rate, Rhythm. Negative for: Murmur Respiratory: Positive for: Normal Breath Sounds. Negative for: Wheezing Gastrointestinal/Abdominal: Positive for: Normal Exam, Soft. Negative for: Tenderness Back: Positive for: Normal Inspection. Negative for: L CVA Tenderness, R CVA Tenderness Extremity: Positive for: Normal ROM. Negative for: Pedal Edema, Swelling Neurological/Psych: Positive for: Awake, Alert, Oriented (x3) - Laboratory Results Result Diagrams: 02/03/19 00:25 02/03/19 00:25 - ECG O2 Sat by Pulse Oximetry: 96 (RA) Pulse Ox Interpretation: Normal Medical Decision Making Medical Decision Making: Time: 13 Initial impression: 38 y/o male with suicidal ideation --Labs --Crisis evaluation --Patient placed on 1:1 0200 Patient evaluated by crisis, denies suicidal ideation, stable for discharge. Scribe Attestation: Documented by Dorene Walters acting as a scribe for Teodoro Wood MD. Provider Scribe Attestation: All medical record entries made by the Scribe were at my direction and personally dictated by me. I have reviewed the chart and agree that the record accurately reflects my personal performance of the history, physical exam, medical decision making, and the department course for this patient. I have also personally directed, reviewed, and agree with the discharge instructions and disposition. Disposition - Clinical Impression Clinical Impression: Cocaine abuse, Alcohol abuse - Patient ED Disposition Is Patient to be Admitted: No - Disposition Disposition: Routine/Home Disposition Time: 02:00 Condition: STABLE Instructions: Cocaine Use Disorder, Drug Abuse Treatment Forms: [employer] (Polish) Print Language: ROMANIAN
[2019-02-03 00:36] LABS: BASO # 0.1 K/uL (0.0-0.2); BASO % 1.2 % (0.0-2.0); EOS # 0.2 K/uL (0.0-0.7); EOS % 2.6 % (0.0-4.0); HEMOGLOBIN 13.7 g/dL (12.0-18.0); LYMPH % 26.4 % (20.0-40.0); MEAN CELL VOLUME 90.6 fl (80.0-94.0); MEAN CORPUSCULAR HEMOGLOBIN 31.3 pg (27.0-31.0); MEAN CORPUSCULAR HGB CONC 34.6 g/dL (33.0-37.0); MEAN PLATELET VOLUME 8.9 fl (7.2-11.7); MONO # 0.5 K/uL (0.0-0.8); MONO % 6.6 % (0.0-10.0); NEUT # 4.8 K/uL (1.8-7.0); NEUT % 63.2 % (50.0-75.0); RBC 4.36 Mil/uL (4.40-5.90); RED CELL DISTRIBUTION WIDTH 13.5 % (11.5-14.5); WHITE BLOOD COUNT 7.7 K/uL (4.8-10.8)
[2019-02-03 00:42] LABS: SQUAMOUS EPITHIAL 1 /hpf (0-5); URINE BILIRUBIN NEGATIVE (NEGATIVE); URINE BLOOD SMALL (NEGATIVE); URINE CLARITY SLIGHTY-CLOUDY (Clear); URINE COLOR YELLOW (YELLOW); URINE GLUCOSE (UA) >=500 mg/dL (NEGATIVE); URINE LEUKOCYTE ESTERASE NEG Leu/uL (Negative); URINE PROTEIN NEGATIVE (NEGATIVE); URINE UROBILINOGEN 0.2-1.0 mg/dL (0.2-1.0)
[2019-02-03 00:53] LABS: BARBITURATES, UR NEGATIVE (NEGATIVE); BENZODIAZEPINES, UR NEGATIVE (NEGATIVE); OPIATES, UR NEGATIVE (NEGATIVE); PHENCYCLIDINE, UR NEGATIVE (NEGATIVE)
[2019-02-03 00:56] LABS: ALB/GLOB RATIO 1.4 (1.0-2.1); ALBUMIN 4.2 g/dL (3.5-5.0); ALT/SGPT 32 U/L (21-72); AST/SGOT 26 U/L (17-59); BLOOD UREA NITROGEN 14 mg/dl (9-20); GFR NON-AFRICAN AMERICAN > 60
[2019-02-03 06:32] VITALS: BP 132/80; PULSE 88; TEMP 98.6; O2SAT 98
== END 2019-02-03 06:36 | disposition home or self-care (01) ==
LOC: H.ER 23:37
DX: F14.10 Cocaine abuse, uncomplicated (principal); F10.10 Alcohol abuse, uncomplicated; Z86.59 Personal history of other mental and behavioral disorders; I10 Essential (primary) hypertension; R45.851 Suicidal ideations; E11.9 Type 2 diabetes mellitus without complications; Z79.84 Long term (current) use of oral hypoglycemic drugs; Z79.899 Other long term (current) drug therapy; E78.00 Pure hypercholesterolemia, unspecified